=== PATIENT | female | born 1930 | race African-American/Black ===

== ENCOUNTER 2017-10-09 16:24 | Emergency (ER) | payer MEDICARE, MEDICAID ==
[~2017-10-09] VITALS: Ht 167.6 cm; Wt 90.0 kg
[2017-10-09] MEDS ORDERED: DEXAMETHASONE 10 MG/ML VIAL IV ONE (16:45)
[2017-10-09 22:30] VITALS: BP 163/90
== END 2017-10-09 22:51 | disposition home or self-care (01) ==
LOC: ER 16:24
DX: T78.03XA Anaphylactic reaction due to other fish, initial encounter (principal); T78.3XXA Angioneurotic edema, initial encounter; I10 Essential (primary) hypertension; Z88.0 Allergy status to penicillin; Z91.018 Allergy to other foods
CPT/HCPCS: 96374; 99284; J1100